=== PATIENT | female | born 1990 | race Two or more races ===

== ENCOUNTER 2016-12-12 15:12 | Emergency (ER) | payer OTHER ==
[~2016-12-12] VITALS: Ht 160 cm; Wt 53.1 kg
[2016-12-12 15:15] VITALS: BP 124/70
[2016-12-12] MEDS ORDERED: CEPHALEXIN MONOHYDRATE 500 MG CAPSULE PO ONE ×2 (16:00→16:19)
== END 2016-12-12 17:00 | disposition home or self-care (01) ==
LOC: ER 15:17
DX: L03.114 Cellulitis of left upper limb (principal)
CPT/HCPCS: 99283; A4606; Z7610